=== PATIENT | female | born 1945 | race Two or more races ===

== ENCOUNTER 2017-05-17 20:53 | Emergency (ER) | payer MEDICARE, OTHER ==
[~2017-05-17] VITALS: Ht 157.5 cm; Wt 87.5 kg
[2017-05-17 20:55] VITALS: BP 186/100
[2017-05-17] MEDS ORDERED: HYDROCODONE/APAP 5/325MG 1 EACH TABLET ONE ×2 (21:29→21:46)
[2017-05-17] MEDS ORDERED: ONDANSETRON 4 MG TAB.RAPDIS ONE ×2 (21:29→21:47)
[2017-05-17] MEDS ORDERED: HYDROCODONE/APAP 5/325MG 1 EACH TABLET PO ONE (21:30)
[2017-05-17] MEDS ORDERED: ONDANSETRON 4 MG TAB.RAPDIS PO ONE (21:30)
--- NOTE | 2017-05-17 21:49 | NUR ---
PT C/O SEVERE PAIN AND IS NOW WILLING TO TAKE NORCO. DR GOYAL MADE AWARE. NORCO 5/325 AND ZOFRAN 4MG ODT GIVEN PER ERMD VERBAL ORDER.
== END 2017-05-17 22:15 | disposition home or self-care (01) ==
LOC: ER 20:54
DX: M25.532 Pain in left wrist (principal); E78.00 Pure hypercholesterolemia, unspecified; I10 Essential (primary) hypertension; I25.10 Atherosclerotic heart disease of native coronary artery without angina pectoris; Z95.5 Presence of coronary angioplasty implant and graft; Z96.642 Presence of left artificial hip joint; V43.52XA Car driver injured in collision with other type car in traffic accident, initial encounter; Z90.89 Acquired absence of other organs; Z90.49 Acquired absence of other specified parts of digestive tract; Y92.410 Unspecified street and highway as the place of occurrence of the external cause; Y99.8 Other external cause status; Y93.89 Activity, other specified
CPT/HCPCS: 71010-TC; 73110; A4606; Q0162; Z7610

== ENCOUNTER 2022-01-07 11:38 | Emergency (ER) | payer MEDICARE, OTHER ==
[~2022-01-07] VITALS: Ht 157.5 cm; Wt 83.9 kg
[2022-01-07 11:53] VITALS: BP 167/99
[2022-01-07] MEDS ORDERED: CIPR10DR LEFT EAR (13:18)
[2022-01-07] MEDS ORDERED: ACET325T53 PO (13:18)
== END 2022-01-07 13:27 | disposition home or self-care (01) ==
LOC: ER 11:44
DX: H92.02 Otalgia, left ear (principal); I10 Essential (primary) hypertension; I25.10 Atherosclerotic heart disease of native coronary artery without angina pectoris; Z90.89 Acquired absence of other organs; Z90.49 Acquired absence of other specified parts of digestive tract; Z98.890 Other specified postprocedural states

== ENCOUNTER 2022-09-22 01:31 | Emergency (ER) | payer MEDICARE, OTHER ==
[~2022-09-22] VITALS: Ht 165.1 cm; Wt 77.6 kg
[~2022-09-22 01:31] MED LIST: ACET325T53 PO; CIPR10DR LEFT EAR
--- NOTE | 2022-09-22 02:00 | NUR ---
Note rishabh in EDM - 09/22/22 at 0224 by MOSHE JIMENA C/O LEFT THUMB AND PINKY PAIN X 10 DAYS . TOLERATING R/A WELL WITH NO RESP DISTRESS. RR EVEN AND NONLABORED. SAFETY MEASURES IN PLACE.
--- NOTE | 2022-09-22 02:00 | NUR ---
BIBSON C/O LEFT THUMB AND PINKY PAIN X 10 DAYS. PT A/OX4. TOLERATING R/A WELL WITH NO RESP DISTRESS. RR EVEN AND NONLABORED. SAFETY MEASURES IN PLACE.
--- NOTE | 2022-09-22 02:20 | NUR ---
DR. ALKA GERBER AT PT'S BEDSIDE
--- NOTE | 2022-09-22 03:04 | NUR ---
ELECTRONICS ENGINEERING TECHNICIAN AT PT'S BEDSIDE
[2022-09-22 03:18] LABS: BASOPHILS % (AUTO) 0.3 % (0.0-2.0); EOSINOPHILS % (AUTO) 2.5 % (0.0-6.0); HEMATOCRIT 37 % (33-45); HEMOGLOBIN 12.5 g/dL (11.5-14.8); LYMPHOCYTES # (AUTO) 2.7 K/uL (0.8-4.8); LYMPHOCYTES % (AUTO) 45.9 % (20.0-44.0); MEAN CORPUSCULAR HGB CONC 34 g/dl (31.0-36.0); MEAN CORPUSCULAR VOLUME 88 fL (82-100); MONOCYTES # (AUTO) 0.4 K/uL (0.1-1.30); MONOCYTES % (AUTO) 6.6 % (2.0-12.0); NEUTROPHILS # (AUTO) 2.7 K/uL (1.8-8.9); NEUTROPHILS % (AUTO) 44.7 % (43.0-81.0); PLATELET COUNT (AUTO) 151 K/uL (150-450); RED BLOOD CELL COUNT(AUTO) 4.22 MIL/uL (4.0-5.2)
[2022-09-22 03:35] LABS: CALCIUM, SERUM 8.9 mg/dL (8.5-10.1); CREATININE 0.8 mg/dL (0.6-1.3)
--- NOTE | 2022-09-22 05:40 | NUR ---
Patient discharged to home in stable condition. Written and verbal after care instructions given. Patient verbalizes understanding of instruction. PT ambulatory with a steady gait
[2022-09-22 05:41] VITALS: BP 145/71
== END 2022-09-22 05:41 | disposition home or self-care (01) ==
LOC: ER 01:34
DX: L60.8 Other nail disorders (principal); I10 Essential (primary) hypertension; Z90.49 Acquired absence of other specified parts of digestive tract; I25.10 Atherosclerotic heart disease of native coronary artery without angina pectoris; E78.00 Pure hypercholesterolemia, unspecified; Z90.89 Acquired absence of other organs; Z96.642 Presence of left artificial hip joint; Z95.1 Presence of aortocoronary bypass graft
CPT/HCPCS: 36415; 80048-TC; 85025-TC; 85652-TC; 85730-TC; 86140-TC

== ENCOUNTER 2024-07-06 13:31 | Emergency (ER) | payer MEDICARE, OTHER ==
[~2024-07-06] VITALS: Ht 160 cm; Wt 83.9 kg
[2024-07-06 14:46] LABS: BASOPHILS % (AUTO) 0.5 % (0.0-2.0); EOSINOPHILS # (AUTO) 0.1 K/uL (0.0-0.7); EOSINOPHILS % (AUTO) 0.9 % (0.0-6.0); HEMATOCRIT 33 % (33-45); HEMOGLOBIN 11.5 g/dL (11.5-14.8); LYMPHOCYTES # (AUTO) 2.2 K/uL (0.8-4.8); LYMPHOCYTES % (AUTO) 22.8 % (20.0-44.0); MEAN CORPUSCULAR HEMOGLOBIN 31 PG (26.0-33.0); MEAN CORPUSCULAR HGB CONC 35 g/dl (31.0-36.0); MEAN CORPUSCULAR VOLUME 88 fL (82-100); MONOCYTES # (AUTO) 0.5 K/uL (0.1-1.30); MONOCYTES % (AUTO) 4.8 % (2.0-12.0); NEUTROPHILS # (AUTO) 6.7 K/uL (1.8-8.9); PLATELET COUNT (AUTO) 220 K/uL (150-450); RED BLOOD CELL COUNT(AUTO) 3.77 MIL/uL (4.0-5.2); RED CELL DISTRIBUTION WIDTH 14.3 % (11.5-15.0); WHITE BLOOD COUNT (AUTO) 9.5 K/uL (4.3-11.0)
[2024-07-06 14:54] LABS: CALCIUM, SERUM 9.5 mg/dL (8.5-10.1); CARBON DIOXIDE 28 mmol/L (21-32); CHLORIDE 102 mmol/L (98-107); CREATININE 0.9 mg/dL (0.6-1.3); GLUCOSE 110 mg/dL (74-106); POTASSIUM 3.8 mmol/L (3.5-5.1); SODIUM SERUM 138 mmol/L (136-145); UREA NITROGEN, BLOOD 15 mg/dL (7-18)
[2024-07-06 15:08] LABS: ALANINE AMINOTRANSFERASE 21 U/L (12-78); ALBUMIN 3.9 g/dL (3.4-5.0); ALKALINE PHOSPHATASE 61 U/L (46-116); ASPARTATE AMINOTRANSFERASE 21 U/L (15-37); BILIRUBIN,DIRECT 0.2 mg/dL (0.0-0.2); BILIRUBIN,TOTAL 0.9 mg/dL (0.2-1.0); LIPASE 35 U/L (16-77); TOTAL PROTEIN, SERUM 8.3 g/dL (6.4-8.2)
[2024-07-06] MEDS ORDERED: CIPR-262 PO (16:13)
[2024-07-06] MEDS ORDERED: METR500T PO (16:13)
[2024-07-06] MEDS ORDERED: CIPROFLOXACIN HCL 500 MG TABLET ONE (16:24)
[2024-07-06] MEDS ORDERED: METRONIDAZOLE 500 MG TABLET ONE (16:24)
[2024-07-06] MEDS: CIPROFLOXACIN HCL 500 MG TABLET PO ONE (16:35)
[2024-07-06] MEDS: METRONIDAZOLE 500 MG TABLET PO ONE (16:35)
[2024-07-06 17:09] VITALS: BP 149/91; TEMP 97.9; O2SAT 97
== END 2024-07-06 17:09 | disposition home or self-care (01) ==
LOC: ER 13:46
DX: K57.32 Diverticulitis of large intestine without perforation or abscess without bleeding (principal); I10 Essential (primary) hypertension; I25.10 Atherosclerotic heart disease of native coronary artery without angina pectoris; E78.00 Pure hypercholesterolemia, unspecified; Z95.5 Presence of coronary angioplasty implant and graft; Z90.49 Acquired absence of other specified parts of digestive tract
CPT/HCPCS: 36415; 76856-TC; 80048-TC; 80076-TC; 83690-TC; 85025-TC